=== PATIENT | female | born 1990 | race Caucasian/White ===

== ENCOUNTER 2018-12-19 07:21 | Emergency (ER) | payer OTHER ==
[~2018-12-19] VITALS: Ht 160 cm; Wt 86.2 kg
[2018-12-19 07:21] VITALS: BP 129/71
--- NOTE | 2018-12-19 07:21 | NUR ---
PT AMBULATED TO BED 5
--- NOTE | 2018-12-19 07:21 | NUR ---
PT BIB MOTHER C/O FEVER AND NONPRODUCTIVE COUGH X 2 DAYS. TOOK IBUPROFEN AT 0500. LUNGS CLEAR BILAT, RESPIRATIONS E/U, DENIES CP/SOB/NVD. DENIES PAIN. PT PLACED IN GOWN, ON FULL MONITOR, BED IN LOW POSITION.
[2018-12-19] MEDS ORDERED: KETOROLAC 60 MG/2 ML VIAL IM ONE (07:55)
[2018-12-19 08:20] VITALS: BP 134/70
--- NOTE | 2018-12-19 08:20 | NUR ---
Patient discharged with v/s stable. Written and verbal after care instructions given and explained. Patient alert, oriented and verbalized understanding of instructions. Ambulatory with steady gait. All questions addressed prior to discharge. ID band removed. Patient advised to follow up with PMD. Rx of MOTRIN AND PREDNISONE given. Patient educated on indication of medication including possible reaction and side effects. Opportunity to ask questions provided and answered.
== END 2018-12-19 08:20 | disposition home or self-care (01) ==
LOC: MED 07:21
DX: J06.9 Acute upper respiratory infection, unspecified (principal); J45.909 Unspecified asthma, uncomplicated
CPT/HCPCS: 81002; 81025; 96372; 99283; J1885

== ENCOUNTER 2022-03-06 23:05 | Emergency (ER) | payer OTHER ==
[~2022-03-06] VITALS: Ht 160 cm; Wt 85.3 kg
[2022-03-06 23:24] VITALS: BP 129/85
--- NOTE | 2022-03-06 23:29 | NUR ---
PATIENT TO LOBBY
[2022-03-07] MEDS ORDERED: ALBUTEROL SULFATE/IPRATROPIU 3 ML SOL IH ONE (00:45)
[2022-03-07] MEDS ORDERED: predniSONE 20 MG TAB PO ONE (00:45)
--- NOTE | 2022-03-07 00:46 | NUR ---
PATIENT AMBULATED TO BED 3
--- NOTE | 2022-03-07 00:47 | NUR ---
CALLED RT FOR PATIENT
--- NOTE | 2022-03-07 00:51 | NUR ---
PT IN BED SIDE RAIL UP X1. 02SAT 100%RA
--- NOTE | 2022-03-07 01:00 | NUR ---
NEB TX RT AT BEDSIDE
[2022-03-07] MEDS ORDERED: PRED20TA5 PO (01:13)
[2022-03-07] MEDS ORDERED: ALBU0.0912 INH (01:13)
--- NOTE | 2022-03-07 01:30 | NUR ---
31 Y.O. F BIB SELF C/O ASTHMA X2 DAYS AND HAS PROGRESSIVELY WORSE. TOOK ALBUTEROL WITH SOME SHORT TERM RELIEF. HAS SOME CHEST PAIN WHEN INHALING DEEPLY. NON-PRODUCTIVE COUGH. PT DENIES ANY PAIN JUST TIGHTNESS IN CHEST FROM ASTHMA. PT STATING 100% ON ROOM AIR. PT RESTING IN BED. PMH: ASTHMA NKA
[2022-03-07 01:55] VITALS: BP 129/85
--- NOTE | 2022-03-07 01:56 | NUR ---
Patient discharged with v/s stable. Written and verbal after care instructions given and explained. Patient alert, oriented and verbalized understanding of instructions. Ambulatory with steady gait. All questions addressed prior to discharge. ID band removed. Patient advised to follow up with PMD. Rx of ALBUTEROL SULFATE AND PREDNISONE given. Patient educated on indication of medication including possible reaction and side effects. Opportunity to ask questions provided and answered.
== END 2022-03-07 01:56 | disposition home or self-care (01) ==
LOC: MED 23:05
DX: J45.901 Unspecified asthma with (acute) exacerbation (principal); Z79.899 Other long term (current) drug therapy
CPT/HCPCS: 94640; 99283; J7512

== ENCOUNTER 2022-09-05 10:24 | Emergency (ER) | payer OTHER ==
[~2022-09-05] VITALS: Ht 160 cm; Wt 83.0 kg
[~2022-09-05 10:24] MED LIST: ALBU0.0912 INH; PRED20TA5 PO
[2022-09-05 10:41] VITALS: BP 130/89
--- NOTE | 2022-09-05 10:54 | NUR ---
COVID MADHU, FLU, RSV SWABS DONE.
--- NOTE | 2022-09-05 10:54 | NUR ---
EKG AT TRIAGE ROOM.
[2022-09-05 10:55] VITALS: BP 130/89
[2022-09-05 12:08] LABS: RSV NEGATIVE (NEGATIVE)
--- NOTE | 2022-09-05 13:31 | NUR ---
PATIENT LEFT WITHOUT BEING SEEN BY DR. LYONS. NO FURTHER CARE PROVIDED FOR PATIENT.
--- NOTE | 2022-09-05 21:49 | NUR ---
PATIENT LEFT WITHOUT BEING SEEN BY DR. HYMAN. NO FURTHER CARE PROVIDED FOR PATIENT.
== END 2022-09-05 21:49 | disposition left against medical advice (07) ==
LOC: MED 10:24
DX: R50.9 Fever, unspecified (principal); Z20.822 Contact with and (suspected) exposure to COVID-19; Z53.21 Procedure and treatment not carried out due to patient leaving prior to being seen by health care provider
CPT/HCPCS: 87420; 93005